=== PATIENT | female | born 2000 | race Caucasian/White ===

== ENCOUNTER → 2019-01-10 12:05 | Outpatient (CLI) | payer OTHER, SELFPAY ==
[2019-01-10 13:27] LABS: Hematocrit 41.5 % (37-47); Hemoglobin 13.9 g/dL (12.0-15.0); Mean Corp Hgb Conc 33.5 g/dL (32-36); Mean Corpuscular Volume 86.6 fL (81-99); Mean Platelet Vol. 11.1 fl (6.2-12.0); Platelet Count 230 K/mm3 (150-450); RBC Distribution Width SD 37.8 fl (35.1-43.9); Red Blood Count 4.79 M/mm3 (4.2-5.4); White Blood Count 8.4 K/mm3 (4.4-11.0)
[2019-01-10 13:49] LABS: Fibrinogen 333 mg/dl (203-444); International Normalized Ratio 1.1; Partial Thromboplast Time 28.1 Seconds (24.1-36.2); Prothrombin Time (Protime)PT. 13.8 SECONDS (11.7-14.9)
[2019-01-10 14:00] LABS: Hemoglobin A1c 5.1 % (4.2-6.3)
[2019-01-10 14:02] LABS: Vitamin D,25 Hydroxy 15.9 ng/mL (29.95-100.01)
[2019-01-10 14:03] LABS: ALB/GLOB Ratio 1.1 RATIO (0.9-2.4); AST(SGOT) 30 U/L (15-37); Alanine Aminotransfer ALT/SGPT 62 U/L (13-56); Alkaline Phosphatase 66 U/L (45-117); Anion Gap 7 (5-15); BUN 15 mg/dL (7-18); BUN/Creat Ratio 15.1 RATIO (10-20); Chloride 108 mmol/L (98-107); Cholesterol 117 mg/dL (200); Creatinine, Serum 0.99 mg/dL (0.55-1.02); EST Glomerular Filtration Rate 76 mL/min (>60); Est Glom Filt Rate - Afr Amer 92 mL/min (>60); Ferritin 71 ng/mL (8-252); Globulin 3.5 g/dL (2.2-4.2); Glucose 86 mg/dL (74-106); High Density Lipoprotein 40 mg/dL; Potassium 3.7 mmol/L (3.5-5.1); Protein, Total 7.5 g/dL (6.4-8.2); Sodium Level 142 mmol/L (136-145); T4 Free Direct 1.14 ng/dL (0.76-1.46); Thyroid Stim Hormone (TSH) 2.39 uIU/mL (0.358-3.74); Triglycerides 84 mg/dL; Very Low Density Lipoprotein 17 mg/dL (5-40)
[2019-01-15 16:07] LABS: Factor VIII Activity 135 % (56-140); von Willebrand Factor Activity 86 % (50-200)
[2019-01-17 12:30] LABS: VWD Studies Interp Report Note (.); von Willebrand Factor (vWF) Ag 109 % (50-200)
== END ==
PROVIDERS: Family Provider Pediatrics; PCP Pediatrics
DX: Z00.01 Encounter for general adult medical examination with abnormal findings (principal); N92.1 Excessive and frequent menstruation with irregular cycle; E66.3 Overweight
CPT/HCPCS: 36415; 80053; 80061; 82306; 82728; 83036; 84439; 84443; 85027; 85240; 85245; 85246; 85384; 85610; 85730

== ENCOUNTER 2019-07-07 03:34 | Emergency (ER) | payer OTHER, SELFPAY ==
[2019-07-07 03:35] VITALS: BP 155/100; PULSE 98; RESP 16; TEMP 37.2; O2SAT 100; BMI 49.5
--- NOTE | 2019-07-07 03:38 | EKG12_ITS ---
Test Reason : DYSRHYTHMIA Blood Pressure : / mmHG Vent. Rate : 082 BPM Atrial Rate : 082 BPM P-R Int : 144 ms QRS Dur : 076 ms QT Int : 350 ms P-R-T Axes : 012 055 016 degrees QTc Int : 408 ms Sinus rhythm with marked sinus arrhythmia Otherwise normal ECG Confirmed by JULY YOUNG, OSMAN ([id number]), advertising editor HIWOT ERWIN ([id number]) on 07/09/2019 10:10:53 AM Referred By: MR Confirmed By:OSMAN MCDOWELL MD
--- NOTE | 2019-07-07 03:53 | ED.VIS.GEN ---
History of Present Illness Chief Complaint: Chest Other Narrative: Patient presenting secondary to chest pain palpitations and startling awake. Patient states that over the course of about the last 3 days anytime she feels as if she is relaxing or falling asleep she is startling awake and having palpitations shortness of breath and chest pain. Patient denies that this is associated with any sort of persistent chest pain. She denies any recent infectious signs or symptoms such as runny nose postnasal drip sore throat cough nausea vomiting diarrhea or fevers. She is never had any prior similar episodes in the past. She denies any recent neck injuries. She is not on any sort of medications or any sedating medicines or any alcohol. She denies any visual changes numbness weakness or speech difficulty. She denies any difficulty with swallowing. Review of systems otherwise negative. Past Medical History - Allergies and Home Meds Allergies/Adverse Reactions: Allergies amoxicillin Allergy (Verified 07/07/19 03:41) Unknown Penicillins Allergy (Verified 07/07/19 03:41) Unknown Primary Care Physician: Lj Finch MD [Primary Care Provider] - Past Medical History: None Surgical History: adenoidectomy, tonsillectomy Smoking Status: Never smoker Review of Systems All systems negative except as indicated General: Denies: Chills, Fever, Sweats Eyes: Denies: Visual changes - bilaterally, Diplopia ENT: Denies: Rhinorrhea, Sore throat Cardiovascular: Reports: Chest pain, Palpitations Respiratory: Reports: Dyspnea Gastrointestinal: Denies: Abdominal pain, Nausea, Vomiting, Diarrhea, Melena, Hematochezia Genitourinary: Denies: Dysuria, Hematuria, Frequency Musculoskeletal: Denies: Back pain, Extremity Pain Skin: Denies: Rash, Wounds Neurological: Denies: Headache, Weakness, Numbness Physical Exam Vital Signs/Narrative: Vital Signs Temp Pulse Resp BP Pulse Ox 07/07/19 03:35 98.9 F 98 16 155/100 H 100 Inital Vital Signs reviewed: Yes General: Well nourished, Well developed, Obese Head: Normocephalic, Atraumatic Eyes: Perrl, EOMI ENT: Moist mucous membranes, No rhinorrhea, - - Oropharynx is clear. Patient seems to have evidence of reemergence of her tonsils. No evidence of asymmetry or posterior fullness. Neck: Supple, Nontender Cardiovascular: Regular rate, Regular rhythm, No murmurs Respiratory: No distress, CTA bilaterally, Chest nontender Abdomen: Soft, Nontender, Nondistended, Normal bowel sounds Back: Nontender, Normal Inspection Extremities: Nontender, No edema Skin: Normal color, No rash Neurological: Alert, Oriented x3, Cranial nerves II-XII grossly intact, Normal Strength, Normal Sensation Psychological: Normal affect, Normal Mood Diagnostic/Tx/Re-eval - EKG Initial EKG Interpretation: - - Sinus arrhythmia with a sinus rhythm of [address] segments normal T waves normal NC and QTc intervals no evidence of WPW or Brugada morphology. - Medical Decision Making Patient presented with shortness of breath upon waking. A PA and lateral soft tissue neck x-ray was obtained by my personal review as well as radiology shows no evidence of posterior fullness epiglottitis or acute process. EKG was found to be within normal limits. Patient symptomatology and her body habitus would seem consistent with the possibility of her having sleep apnea. Patient will be given referral to pulmonology as well as ear nose and throat. She was recommended to sleep in a semiupright position to help alleviate this. All questions were answered and the patient was discharged. ED Disposition - Plan for ED Patient: Disposition: Home or Assisted Living Diagnosis: Sleep apnea syndrome Instructions: SLEEP APNEA, Obstructive (Adult) Referrals: Maicol Melton DO [STAFF PHYSICIAN] - 1-2 Weeks Juventino Olivares MD [STAFF PHYSICIAN] - 1-2 Weeks
--- NOTE | 2019-07-07 04:15 | RAD_ITS ---
HISTORY: PT FEELS SOMETHING IN THROAT WHILE SWALLOWING, SOB COMPARISON: None TECHNIQUE: AP and lateral soft tissue neck radiographs Number of images including paperwork: 2 FINDINGS: EPIGLOTTIS AND ARYEPIGLOTTIC FOLDS: Unremarkable. AIRWAY: Unremarkable. PREVERTEBRAL SOFT TISSUES: No significant prevertebral soft tissue thickening. No distinct foreign body. BONES: No acute skeletal abnormality. RAD/Neck for Soft Tissue IMPRESSION: No acute findings. at 0437 Reported and signed by: Darya Cantu MD Electronically Signed: Darya Cantu MD at 4:37 EST Tel , Service support ,
[2019-07-07 05:40] VITALS: BP 139/67; PULSE 89; RESP 17; O2SAT 96
== END 2019-07-07 05:41 | disposition home or self-care (01) ==
PROVIDERS: Emergency Provider Emergency Medicine; PCP Pediatrics
DX: G47.30 Sleep apnea, unspecified (principal); E66.9 Obesity, unspecified; Z88.0 Allergy status to penicillin
CPT/HCPCS: 70360; 93005; 99282

== ENCOUNTER → 2019-08-07 09:36 | Outpatient (CLI) | payer OTHER, SELFPAY ==
[2019-08-07 12:42] LABS: Vitamin B12 1005 pg/mL (211-911); Vitamin D,25 Hydroxy 11.9 ng/mL
[2019-08-07 12:50] LABS: ALB/GLOB Ratio 1.1 RATIO (0.9-2.4); AST(SGOT) 40 U/L (15-37); Alanine Aminotransfer ALT/SGPT 89 U/L (13-56); Albumin, Serum 3.8 g/dL (3.2-5.0); Alkaline Phosphatase 76 U/L (45-117); Anion Gap 6 (5-15); BUN 9 mg/dL (7-18); BUN/Creat Ratio 10.7 RATIO (10-20); Calcium,Total 9.1 mg/dL (8.5-10.1); Chloride 104 mmol/L (98-107); Creatinine, Serum 0.84 mg/dL (0.55-1.02); EST Glomerular Filtration Rate 91 mL/min (>60); Est Glom Filt Rate - Afr Amer 110 mL/min (>60); Globulin 3.5 g/dL (2.2-4.2); Glucose 88 mg/dL (74-106); Potassium 3.8 mmol/L (3.5-5.1); Protein, Total 7.3 g/dL (6.4-8.2); Sodium Level 137 mmol/L (136-145); Thyroid Stim Hormone (TSH) 1.86 uIU/mL (0.358-3.74)
== END ==
PROVIDERS: PCP Family Medicine; Referring Provider Family Medicine; Visit Provider Family Medicine
DX: R42 Dizziness and giddiness (principal); E55.9 Vitamin D deficiency, unspecified
CPT/HCPCS: 36415; 80053; 82306; 82607; 84443

== ENCOUNTER → 2019-10-12 09:32 | Outpatient (CLI) | payer OTHER, SELFPAY ==
[2019-10-13 12:48] LABS: H. Pylori Antibody (IgG) 0.27 (0.00-0.79)
== END ==
PROVIDERS: PCP Family Medicine; Referring Provider Family Medicine; Visit Provider Family Medicine
DX: R10.9 Unspecified abdominal pain (principal)
CPT/HCPCS: 36415; 86677

== ENCOUNTER → 2019-11-02 10:26 | Outpatient (CLI) | payer OTHER, SELFPAY ==
[2019-10-18 14:39] VITALS: BMI 47.4
[2019-10-24 10:00] VITALS: BMI 47.4
--- NOTE | 2019-11-02 10:29 | US_ITS ---
STUDY: ABDOMINAL ULTRASOUND REASON FOR EXAM: Female, 18 years old. LUQ PAIN TECHNIQUE: Transabdominal ultrasound was performed with real-time and static harding scale imaging. TECHNICAL QUALITY: Limited. Examination limited due to a combination of factors including obesity and bowel gas. COMPARISON: None. FINDINGS: Liver: The liver measures 16.6 cm. There is increased echogenicity consistent with fatty infiltration. The bile ducts are within normal limits. There is hepatic color flow. The direction of portal flow is hepatopetal. There is no demonstrated mass lesion. Portal vein measurement: Gallbladder: Normal distended gallbladder. The gallbladder wall measures 2 mm. There is a negative sonographic Catalan''s sign. There is no pericholecystic fluid. There are no gallstones. Common Bile Duct (C.B.D.): The common bile duct measures 2 mm. Pancreas: Normal size of the head, body and tail of the pancreas. There is increased echogenicity of the pancreas. There is no demonstrated pancreatic mass or cyst. Spleen: Normal size of the spleen. The spleen measures 12.8 cm. Right Kidney: Normal size of the right kidney. The right kidney measures 10.3 x 4.8 x 4.5 cm. Normal renal cortex. The right cortex measures 1.9 cm. There is no demonstrated renal mass or cyst. There is no right hydronephrosis. Left Kidney: Normal size of the left kidney. The left kidney measures 10.1 x 5.8 x 5.0 cm. Normal renal cortex. The left cortex measures 1.8 cm. There is no demonstrated renal mass or cyst. There is no left hydronephrosis. Aorta: Tapers normally I.V.C.: The IVC is patent. There is no ascites. US/Abdomen Complete IMPRESSION: Diffuse fatty administration of the liver, no discrete lesion Sonographically normal gallbladder Nonspecific echogenic pancreas Electronically Signed: Farhat Ballard MD at 11:47 EDT , Service support ,
== END ==
PROVIDERS: PCP Family Medicine; Referring Provider Family Medicine; Visit Provider Family Medicine
DX: R10.9 Unspecified abdominal pain (principal)
CPT/HCPCS: 76700

== ENCOUNTER → 2019-11-19 14:36 | Outpatient (CLI) | payer OTHER, SELFPAY ==
[2019-10-24 10:00] VITALS: BMI 47.4
--- NOTE | 2019-11-19 14:38 | CT_ITS ---
STUDY: CT ABDOMEN AND PELVIS WITH CONTRAST REASON FOR EXAM: Female, 18 years old. ABD PAIN- LUQ X 2 MON, NO PREV SURG RADIATION DOSAGE (If Supplied By Facility): CTDIvol = ( 15.24 ) mGy, DLP = ( 1206.61 ) mGycm TECHNIQUE: Transaxial images were obtained from the dome of the diaphragm to the symphysis pubis with oral contrast. IV 100mL Isovue-300 was administered. Sagittal and coronal images were reconstructed. Individualized dose optimization techniques were used for this CT. COMPARISON: None. FINDINGS: The visualized lung bases are unremarkable. The visualized portions of the heart are within normal limits. There is decreased attenuation of the liver consistent with steatosis. Normal gallbladder and extrahepatic biliary system. Normal spleen. Normal pancreas. Normal bilateral adrenal glands. Normal right kidney. Normal left kidney. Normal visualized stomach. Normal small intestine. Normal colon. The appendix is visualized and appears normal. Appendix best seen on coronal recon image 72 Normal abdominal aorta. Normal inferior vena cava. Normal retroperitoneum. Normal urinary bladder. Normal-appearing uterus. No suspicious cystic mass or free fluid, there is a likely physiologic 2 cm right ovarian cyst noted. Normal abdominal wall. Normal osseous structures. CT/Abdomen/Pelvis WITH Contrast IMPRESSION: Diffuse fatty infiltration of the liver, no discrete lesion No free intraperitoneal fluid, air, or suspicious adenopathy No suspicious cystic mass or free fluid in the pelvis Likely physiologic 2 cm right ovarian cyst Electronically Signed: Farhat Ballard MD at 16:41 EDT , Service support ,
== END ==
PROVIDERS: PCP Family Medicine; Referring Provider Family Medicine; Visit Provider Family Medicine
DX: R10.9 Unspecified abdominal pain (principal)
CPT/HCPCS: 74177; Q9967

== ENCOUNTER → 2019-12-28 08:41 | Outpatient (CLI) | payer OTHER, SELFPAY ==
[2019-10-24 10:00] VITALS: BMI 47.4
== END ==
PROVIDERS: PCP Family Medicine; Referring Provider Family Medicine; Visit Provider Family Medicine
DX: Z20.828 Contact with and (suspected) exposure to other viral communicable diseases (principal)
CPT/HCPCS: 87635; U0003

== ENCOUNTER → 2020-01-16 12:39 | Outpatient (CLI) | payer OTHER, SELFPAY ==
[2020-01-16 08:17] VITALS: BMI 47.4
[2020-01-18 09:53] LABS: HPV Reflexed? NOT INDICATED
== END ==
PROVIDERS: PCP Family Medicine; Referring Provider Obstetrics & Gynecology; Visit Provider Obstetrics & Gynecology
DX: Z12.4 Encounter for screening for malignant neoplasm of cervix (principal)
CPT/HCPCS: 88175; G0145

== ENCOUNTER 2020-02-04 18:57 | Outpatient (RCR) | payer OTHER, SELFPAY ==
[2020-01-16 08:17] VITALS: BMI 47.4
== END 2020-02-06 23:59 ==
LOC: EMPH 18:57
PROVIDERS: PCP Family Medicine; Visit Provider Family Medicine Geriatric Medicine
DX: Z11.59 Encounter for screening for other viral diseases (principal)
CPT/HCPCS: 87635; U0003

== ENCOUNTER → 2020-02-27 07:13 | Outpatient (CLI) | payer OTHER, SELFPAY ==
[2020-02-19 15:08] VITALS: BMI 47.5
--- NOTE | 2020-02-27 07:14 | MRI_ITS ---
STUDY: MRI LEFT KNEE REASON FOR EXAM: Female, 19 years old. Knee pain, knee injury TECHNIQUE: Standardized fat and water weighted pulse sequences were obtained in all 3 orthogonal planes. COMPARISON: X-ray 02/19/2020 FINDINGS: Normal medial meniscus. Normal hyaline cartilage of the medial femorotibial compartment. Normal medial femoral condyle and tibial plateau. Normal medial collateral ligamentous complex (MCL). Normal distal semimembranosus, gracilis and semitendinosus tendons. Normal lateral meniscus. Normal hyaline cartilage of the lateral femorotibial compartment. Normal lateral femoral condyle and tibial plateau. Normal proximal tibiofibular articulation. Normal lateral collateral (fibular) ligament. Normal popliteus tendon. Normal biceps femoris tendon. Normal anterior cruciate ligament (ACL). Normal posterior cruciate ligament (PCL). Shallow trochlear groove with lateral subluxation of patella and edema superolateral Hoffa''s fat pad consistent with patellofemoral maltracking. No evidence of recent patellar dislocation. Normal hyaline cartilage of the patellofemoral compartment. Normal medial and lateral patellar retinaculum. Normal quadriceps tendon. Normal patellar tendon. Normal Hoffa''s fat pad. There is a small volume joint effusion. The soft tissues are unremarkable. The otherwise visualized osseous structures are unremarkable. MRI/Lower Ext Joint Only (Routine) IMPRESSION: Patellofemoral maltracking with a small joint effusion. No MR evidence of recent patellar dislocation. Electronically Signed: Femi Arrington MD at 10:45 EDT Tel , Service support ,
== END ==
LOC: MRI 07:14
PROVIDERS: PCP Family Medicine; Referring Provider Orthopaedic Surgery; Visit Provider Orthopaedic Surgery
DX: S83.005A Unspecified dislocation of left patella, initial encounter (principal); M25.362 Other instability, left knee
CPT/HCPCS: 73721

== ENCOUNTER → 2020-03-27 08:04 | Outpatient (CLI) | payer OTHER, SELFPAY ==
[2020-01-16 08:17] VITALS: BMI 47.4
[2020-02-19 15:08] VITALS: BMI 47.5
--- NOTE | 2020-03-27 08:05 | US_ITS ---
STUDY: ULTRASOUND OF THE FEMALE PELVIS - COMPLETE REASON FOR EXAM: Female, 19 years old. Irregular menses LMP: 03/13/2020. TECHNIQUE: Transabdominal and Transvaginal TECHNICAL QUALITY: Adequate. COMPARISON: None. FINDINGS: The uterus is anteverted and is tilted to the right side of the pelvis. The uterus measures 8 cm x 4.7 cm x 4 cm. There is a Nabothian cyst of the cervix. The endometrium measures 10 mm in thickness, and is hyperechoic. There is no demonstrated endometrial mass. There is no demonstrated myometrial mass. I.U.D. - The patient does not have an I.U.D. The right ovary is visualized. The right ovary measures 2.2 cm x 1.8 cm x 1.4 cm. There is no right ovarian cyst or ovarian mass. There is no visualized right adnexal mass or complex lesion. There is normal arterial and normal venous vascularity. The left ovary is visualized. The left ovary measures 3.3 cm x 1.4 cm x 2.2 cm. There is no left ovarian cyst or ovarian mass. There is no visualized left adnexal mass or complex lesion. There is normal arterial and normal venous vascularity. There is no fluid in the cul-de-sac. The pre void volume of the bladder was 61.5 ml. Polycystic ovary disease: No. US/Pelvic (Non ) IMPRESSION: Normal female pelvis. Electronically Signed: Bello Schneider, at 9:06 EST , Service support ,
--- NOTE | 2020-03-27 08:29 | US_ITS ---
STUDY: ULTRASOUND OF THE FEMALE PELVIS - COMPLETE REASON FOR EXAM: Female, 19 years old. Irregular menses LMP: 03/13/2020. TECHNIQUE: Transabdominal and Transvaginal TECHNICAL QUALITY: Adequate. COMPARISON: None. FINDINGS: The uterus is anteverted and is tilted to the right side of the pelvis. The uterus measures 8 cm x 4.7 cm x 4 cm. There is a Nabothian cyst of the cervix. The endometrium measures 10 mm in thickness, and is hyperechoic. There is no demonstrated endometrial mass. There is no demonstrated myometrial mass. I.U.D. - The patient does not have an I.U.D. The right ovary is visualized. The right ovary measures 2.2 cm x 1.8 cm x 1.4 cm. There is no right ovarian cyst or ovarian mass. There is no visualized right adnexal mass or complex lesion. There is normal arterial and normal venous vascularity. The left ovary is visualized. The left ovary measures 3.3 cm x 1.4 cm x 2.2 cm. There is no left ovarian cyst or ovarian mass. There is no visualized left adnexal mass or complex lesion. There is normal arterial and normal venous vascularity. There is no fluid in the cul-de-sac. The pre void volume of the bladder was 61.5 ml. Polycystic ovary disease: No. US/Transvaginal Non- IMPRESSION: Normal female pelvis. Electronically Signed: Bello Schneider, at 9:06 EST , Service support ,
== END ==
PROVIDERS: PCP Family Medicine; Referring Provider Obstetrics & Gynecology; Visit Provider Obstetrics & Gynecology
DX: N92.6 Irregular menstruation, unspecified (principal)
CPT/HCPCS: 76830; 76856

== ENCOUNTER 2020-04-28 09:00 | Outpatient (RCR) | payer OTHER, SELFPAY ==
--- NOTE | 2020-03-05 11:53 | HP.PTEVAL ---
Patient's Visit Information MARISA FRIEDMAN is a 19 year old F referred to Physical Therapy by Dr. Dorota Butler DO with a diagnosis of Left Patellar Subluxation. Date of Evaluation: 03/05/20 Physical Therapist: Elissa Burden DPT - Visit Plan Frequency: 3x /Week Duration: 4 Weeks Plan: Lateral Patella Subluxation- focus on gentle ROM and strengthening- modalities PRN. HEP Given IE: quad set with towel roll, heel slides supine, bolster extension in sitting. - Subjective Patient reports that stepping off of her porch and her left knee cap dislocated 2 weeks ago. The knee cap was dislocated and she had to put it back in. [facility] the [facility] day and they did x-rays which were negative then sent to ortho. Saw Dr. Butler- she did and MRI which showed that the muscle that keeps the knee cap is weak and she has a shallow groove. Discussing surgery but she would rather not. She feels the knee cap slips most of the time even when she is walking. No pain in the knee at this time just pressure. Sleep: disturbed hard to roll back and forth. Pressure is under the cap and on the lateral side of the knee cap. Wears the brace all the time except for at night. Worst: 5/10 Agg: bending Describes the pain as dull and achy. Radiates to the toes- describes it as cramping but it doesnt actually cramp. Does have N/T in the toes which is new- all of them. Best: 0/10 Eases: keeping it at a certain angle. 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 PMHx/Meds: none since she saw MD- in chart. - Objective Posture: FH, RS- can correct but does not maintain. Gait: antalgic- decreased stance on the left LE with poor heel/toe pattern due to decreased ROM and she is hesitant to weightbear for long periods of time on the left. HR/TR: able. SLS: 3 sec then LOB- increased guarding and is hesitant. Palpation: tender along lateral joint line and into the lateral thight. Sensation:WNL. ROM: 40-70 degrees with pain and reports pressure at end ranges- 15-85 with gentle stretching with pain and pressure at end range. Strength: Ankle: 5/5, Hamstrin+/5 with pain, Quad set: visible but diminished. Hip: SLR: moderate lag, extn/abd: 4+/5, IR/ER: not tested due to knee pain. Edema: none noted - Goals Goal 1:: Patient will be I with HEP and progression Goal Time Frame: 4-6 Weeks Goal 2:: Patient will ambulate >300 feet with a normalized gait pattern Goal Time Frame: 4-6 Weeks Goal 3:: Patient will asc/desc 8 stairs recip with 1 HR Goal Time Frame: 4-6 Weeks Goal 4:: Patient will demo 0-125 degrees of the left knee Goal Time Frame: 4-6 Weeks - Rehabilitation Potential Physical Therapy Diagnosis: Patient presents with hypomobility- she has decreased ROM,strength, flex and muscular endurance leading to abnormal gait and decreased ability to perform ADL's. Rehabilitation Potential: Fair - Anticipated Interventions Patient/Client Instruction: Educate patient on: Benefits of Fitness Program Therapeutic Exercise to Include: Strength training, Endurance training, Balance training, Coordination, Agility training, Body mechanics, Postural training, Flexibilty training, Neuromotor development, Passive ROM, Active ROM, Dynamic Lumbar Stabilization For the Purpose of:: To improve muscle performance and motor function TENS: Yes Cryotherapy (ice pack, ice massage): Yes Thermo therapy (hot pack): Yes Ultrasound (thermal/non thermal): Yes For the Purpose of:: To increase ROM Thank you for the opportunity to evaluate your patient. For Medicare and Medicare HMO plans, please review the plan of care and approve it. It will need to be FAXED BACK to us at [phone] for Medicare purposes. For Medicare only, by signing this I certify the plan of care. Please let me know if there are questions or concerns regarding this plan of care. Physician Signature: Date:
--- NOTE | 2020-03-31 10:29 | HP.PTREVAL ---
Dr. Dorota Butler, DO, It has been my pleasure to treat MARISA FRIEDMAN over the last 12 visits for Left Patellar Subluxation. Please see the progress note below for an update on the physical therapy plan of care! Subjective: Patient reports that her knee has no pain and the pressure is improving. She can bend it now better with some pressure. Wears the knee brace all the time unless she is at home. Saw Alireza a few weeks ago and he was happy with progress and does not feel that she is needing surgery. She has not had any instability but it does pop. Feels that the knee is 70% better- she feels that she wants to continue therapy to build more muscular strength. Objective/Function: Posture: FH, RS- can correct but does not maintain. Gait: slightly antalgic- decreased stance on the left LE with poor heel/toe pattern HR/TR: able. SLS: 8 sec then LOB- increased guarding and is hesitant. Palpation:not tender to touch. Sensation:WNL. ROM: 5-110 degrees with pain and reports pressure at end ranges- Strength: Ankle: 5/5, Hamstrin+/5 with pain, Quad set: 4/5. Hip: SLR: mild lag, extn/abd: 4+/5, IR/ER: 4/5 Edema: none noted Plan Plan: Continue with POC- PT without brace unless squatting-work to progress towards confident mobility without brace. Goals Goal 1:: Patient will be I with HEP and progression Goal Time Frame: 4-6 Weeks Goal Progress: Progressing Goal 2:: Patient will ambulate >300 feet with a normalized gait pattern Goal Time Frame: 4-6 Weeks Goal Progress: Progressing Goal 3:: Patient will asc/desc 8 stairs recip with 1 HR Goal Time Frame: 4-6 Weeks Goal Progress: Progressing Goal 4:: Patient will demo 0-125 degrees of the left knee Goal Time Frame: 4-6 Weeks Goal Progress: Progressing Anticipated Interventions Patient/Client Instruction: Educate patient on: Benefits of Fitness Program Therapeutic Exercise to Include: Strength training, Endurance training, Balance training, Coordination, Agility training, Body mechanics, Postural training, Flexibilty training, Neuromotor development, Passive ROM, Active ROM, Dynamic Lumbar Stabilization For the Purpose of:: To improve muscle performance and motor function TENS: Yes Cryotherapy (ice pack, ice massage): Yes Thermo therapy (hot pack): Yes Ultrasound (thermal/non thermal): Yes For the Purpose of:: To increase ROM Please do not hesitate to contact me at [phone] by phone or if you have questions or concerns regarding this new plan of care! Sincerely, WALDO TerrellT
--- NOTE | 2020-04-28 09:26 | HP.PTDCSUM ---
It has been my pleasure to treat MARISA FRIEDMAN referred by Dr. Dorota Butler DO, with the diagnosis of Left Patellar Subluxation for a total of 21 visit(s). Discharge Date: Please see the following information for a summary of their discharge status. Subjective: The pain is better but now its getting stuck. After driving she has to extend it slowly or if she is extended she has not move it slowly. Started a new job last night so she will be the same but the patients will be less. Does feel like its getting better. left knee Pain Intensity (Out of 10): 2 % Improvement: 75 Objective/Function: Posture: FH, RS- can correct but does not maintain. Gait: no deviation noted HR/TR: able. SLS: 15 sec then LOB. Palpation:not tender to touch. Sensation:WNL. ROM: 0-120 degrees with pain and reports pressure at end ranges- Strength: Ankle: 5/5, Hamstrin+/5, Quad set: 4/5. Hip: SLR: no lag, extn/abd: 5/5, IR/ER: 4+/5 Edema: none noted. Stais: asc/desc 8 recip with no HR fair control Goal 1:: Patient will be I with HEP and progression Goal Progress: Goal Met Goal 2:: Patient will ambulate >300 feet with a normalized gait pattern Goal Progress: Goal Met Goal 3:: Patient will asc/desc 8 stairs recip with 1 HR Goal Progress: Goal Met Goal 4:: Patient will demo 0-125 degrees of the left knee Goal Progress: Progressing Plan: Discharge to HEP If there are questions or concerns regarding this patient's physical therapy, please feel free to call me at [phone]. Thank you for the referral of this patient. Sincerely, Elissa Burden DPT
== END 2020-04-28 10:12 | disposition home or self-care (01) ==
LOC: PT 09:00
PROVIDERS: PCP Family Medicine; Referring Provider Orthopaedic Surgery; Visit Provider Orthopaedic Surgery
DX: M22.02 Recurrent dislocation of patella, left knee (principal)
CPT/HCPCS: 97014; 97110; 97161; 97164; G0283

== ENCOUNTER → 2020-09-11 15:42 | Outpatient (CLI) | payer SELFPAY ==
[2020-08-28 11:25] VITALS: BMI 49.0
--- NOTE | 2020-09-11 16:07 | MRI_ITS ---
STUDY: MRI BRAIN WITH AND WITHOUT CONTRAST REASON FOR EXAM: Female, 19 years old. DIZZINESS TECHNIQUE: Standardized multiplanar fat and water weighted pulse sequences were obtained. 25ML IV DOTAREM was administered for the contrast portion of the examination. COMPARISON: None. FINDINGS: No intracranial mass, mass effect, or midline shift. No enhancing lesion. No hemorrhage, territorial infarct or acute ischemia. Normal size of the ventricles and extra-axial spaces for the patient''s age. Normal white matter tracts of the supratentorial brain. Normal bilateral basal ganglia. Normal thalami. There is no extra-axial fluid accumulation. Normal flow voids within the major intracranial circulation suggesting patency by spin echo criteria. There is no enhancing intra-axial or extra-axial abnormality. Normal sella turcica, pituitary gland, infundibular stalk, optic chiasm and hypothalamus. Normal midbrain, ruel and medulla. Normal cerebellum. Normal basal cisterns. Normal bilateral temporal bones. Normal visualized paranasal sinuses. Normal calvarium and skull base. Normal visualized soft tissue structures. MRI/Brain W/WO Contrast IMPRESSION: Normal unenhanced and enhanced MRI of the brain. Electronically Signed: Suzie Ray MD at 22:17 EDT Tel , Service support ,
== END ==
LOC: MRI 15:47
PROVIDERS: PCP Family Medicine; Referring Provider Family Medicine; Visit Provider Family Medicine
DX: R42 Dizziness and giddiness (principal)
CPT/HCPCS: 70553; A9575

== ENCOUNTER → 2020-11-24 08:37 | Outpatient (CLI) | payer BC, SELFPAY ==
[2020-08-28 11:25] VITALS: BMI 49.0
[2020-11-24 09:53] LABS: NATERA MAILED SPECIMEN
[2020-11-24 10:41] LABS: Absolute Lymphocyte Count 1.69 X10^3/uL (0.83-4.51); Absolute Neutrophil Count 4.7 X10^3/uL (2.0-7.7); Basophil# 0.05 X10^3/uL; Basophil% 0.7 % (0-1); Eosinophil# 0.16 X10^3/uL; Eosinophils% 2.2 % (0-5); Hematocrit 40.1 % (37-47); Hemoglobin 13.4 g/dL (12.0-15.0); Lymphocyte # 1.69 X10^3/ul (0.83-4.51); Lymphocyte % 23.2 % (19-41); Mean Corp Hgb Conc 33.4 g/dL (32-36); Mean Corpuscular Volume 86.8 fL (81-99); Mean Platelet Vol. 11.6 fl (6.2-12.0); Monocyte# 0.67 X10^3/uL; Monocyte% 9.2 % (0-10); NRBC Flagged by Analyzer 0 % (0-5); Neutrophil # 4.69 X10^3/uL (2.7-7.7); Neutrophil % 64.2 % (47-70); Platelet Count 194 K/mm3 (150-450); RBC Distribution Width CV 11.9 % (11.6-14.6); RBC Distribution Width SD 37.7 fl (35.1-43.9); Red Blood Count 4.62 M/mm3 (4.2-5.4); White Blood Count 7.3 K/mm3 (4.4-11.0)
[2020-11-24 11:02] LABS: Hemoglobin A1c 5.3 % (3.8-5.6)
[2020-11-24 11:20] LABS: ALB/GLOB Ratio 1.1 RATIO (0.9-2.4); AST(SGOT) 45 U/L (15-37); Alanine Aminotransfer ALT/SGPT 83 U/L (13-56); Albumin, Serum 3.6 g/dL (3.2-5.0); Alkaline Phosphatase 78 U/L (45-117); Anion Gap 7 (5-15); BUN 15 mg/dL (7-18); BUN/Creat Ratio 14.9 RATIO (10-20); Calcium,Total 8.4 mg/dL (8.5-10.1); Chloride 109 mmol/L (98-107); Creatinine, Serum 1.01 mg/dL (0.55-1.02); EST Glomerular Filtration Rate 73 mL/min (>60); Est Glom Filt Rate - Afr Amer 88 mL/min (>60); Globulin 3.4 g/dL (2.2-4.2); Glucose 116 mg/dL (74-106); Magnesium 2.1 mg/dL (1.6-2.6); Potassium 3.5 mmol/L (3.5-5.1); Sodium Level 140 mmol/L (136-145)
[2020-11-24 11:23] LABS: Vitamin B12 525 pg/mL (211-911)
[2020-11-24 11:33] LABS: Cholesterol 119 mg/dL (200); High Density Lipoprotein 33 mg/dL; Prolactin 9.3 ng/mL; Thyroid Stim Hormone (TSH) 2.45 uIU/mL (0.358-3.74); Triglycerides 179 mg/dL; Very Low Density Lipoprotein 36 mg/dL (5-40)
[2020-12-01 09:36] LABS: Testosterone, % Free 3.06 % (0.50-2.80); Testosterone, Free 0.55 ng/dL (0.10-0.85); Testosterone, Total 18 ng/dL (13-71)
== END ==
LOC: LAB 08:40
PROVIDERS: PCP Family Medicine; Referring Provider Obstetrics & Gynecology; Visit Provider Obstetrics & Gynecology
DX: R42 Dizziness and giddiness (principal); R20.0 Anesthesia of skin; G43.909 Migraine, unspecified, not intractable, without status migrainosus; E28.2 Polycystic ovarian syndrome
CPT/HCPCS: 36415; 80053; 80061; 82607; 82627; 83036; 83735; 84146; 84402; 84403; 84443; 85025; 82626

== ENCOUNTER → 2021-01-21 13:04 | Outpatient (CLI) | payer BC, OTHER, SELFPAY ==
--- NOTE | 2021-01-21 13:08 | US_ITS ---
History: pelvic pain Pelvic Ultrasound: Findings: Endovaginal ultrasound imaging of the pelvis performed. Uterus is normal size with endometrial thickness of 11 mm. Small nabothian cysts are present. The ovaries are normal in size, echogenicity and perfusion. Right ovary measures 2.8 x 1.9 x 1.4 cm. Left ovary measures 3.6 x 1.9 x 2.4 cm. No adnexal mass. No fluid in the cul-de-sac. IMPRESSION: No pelvic abnormality. at 1701 Reported and signed by: Itz Steinberg MD Electronically Signed: Itz Steinberg MD at 17:00 EDT Tel , Service support , US/Transvaginal Non-
--- NOTE | 2021-01-21 13:08 | US_ITS ---
STUDY: ULTRASOUND OF THE FEMALE PELVIS - COMPLETE REASON FOR EXAM: Female, 20 years old. PELVIC pain TECHNIQUE: Endovaginal. Transvaginal US was obtained to better visualized the ovaries. COMPARISON: 03.27.20 FINDINGS: The uterus is anteverted and is tilted to the left side of the pelvis. The uterus measures 6.5 x 4.2 x 3.9 cm. Normal uterine cervix. The endometrium measures 10.7 mm in thickness, and is hyperechoic. There is no demonstrated endometrial mass. There is no demonstrated myometrial mass. I.U.D. - The patient does not have an I.U.D. The right ovary is visualized. The right ovary measures 2.8 x 1.9 x 1.4 cm. There is no right ovarian cyst or ovarian mass. There is no visualized right adnexal mass or complex lesion. There is normal arterial and normal venous vascularity. The left ovary is visualized. The left ovary measures 3.6 x 1.9 x 2.4 cm. There is no left ovarian cyst or ovarian mass. There is no visualized left adnexal mass or complex lesion. There is normal arterial and normal venous vascularity. There is no fluid in the cul-de-sac. Urinary bladder volume is 258 cc. US/Pelvic (Non ) IMPRESSION: Normal female pelvis. Electronically Signed: Homer Fulton MD at 11:37 EDT , Service support ,
== END ==
LOC: US 13:07
PROVIDERS: PCP Family Medicine; Referring Provider Obstetrics & Gynecology; Visit Provider Obstetrics & Gynecology
DX: R10.2 Pelvic and perineal pain (principal)
CPT/HCPCS: 76830; 76856

== ENCOUNTER → 2021-02-11 15:44 | Outpatient (CLI) | payer BC, OTHER, SELFPAY ==
--- NOTE | 2021-02-11 | EMB_PTH ---
PATIENT: MARISA HOPPER LOC: [facility] U#:[id number] AGE/SX: 24/F ROOM: RE02/11/[address]: Dr. Xiomara Dumont MD : 2000 BED: DIS: SPEC #: [id number] RECD: 02/12/21 08:53 STATUS: XIOMARA KIRBY #: [id number] CORY: 02/11/21 00:[address]: Xiomara Dumont DEPT: SURGICAL PATHOLOGY RECD BY: Roldan Mccall ENTERED: 02/12/21 08:54 SP TYPE: ENDOM BX/C JUAREZ DR: Dr. Gregory Dumont MD Tissues: Endometrium, NOS Procedures: Surgery Specimen Level IV HEADER OPERATION: Endometrial biopsy PRE-OP DIAGNOSIS: Abnormal uterine bleeding TISSUE SUBMITTED: Endometrial lining MICROSCOPIC DIAGNOSIS Endometrial biopsy: Simple endometrial hyperplasia without atypia. SJ:sonny 02/13/2021 COMMENT Clinical correlation and appropriate follow up are necessary. Case has been reviewed in consultation with Dr. Espinosa who concurs with the above diagnosis. IDC:AM MICROSCOPIC DESCRIPTION Slides are reviewed. GROSS DESCRIPTION Received is one container labeled with the patient's name and not further designated. The specimen consists of multiple irregular fragments of matthews soft tissue that in aggregate measure 2 x 2 x 0.2 cm. The specimen is totally submitted in one cassette. / SJ:sonny 02/12/21 TC:5 CPT: 76783
== END ==
PROVIDERS: PCP Family Medicine; Visit Provider Obstetrics & Gynecology
DX: N93.9 Abnormal uterine and vaginal bleeding, unspecified (principal)
CPT/HCPCS: 88305

== ENCOUNTER → 2022-04-21 | Outpatient (CLI) | payer OTHER, SELFPAY ==
--- NOTE | 2022-04-21 | EMB_PTH ---
PATIENT: MARISA HOPPER [facility] U#:[id number] AGE/SX: 21/F ROOM: RE04/21/[address]: Dr. Sheryl Bee DO : 2000 BED: DIS: 04/21/2022 SPEC #: [id number] RECD: 04/21/22 13:18 STATUS: XIOMARA REPaige #: [id number] CORY: 04/21/22 00:[address]: Sheryl Bee DEPT: SURGICAL PATHOLOGY RECD BY: Shruthi Busch ENTERED: 04/22/22 08:47 SP TYPE: ENDOM BX/C JUAREZ DR: Dr. Gregory Dumont MD Tissues: Endometrium, NOS Procedures: Surgery Specimen Level IV HEADER OPERATION: Endometrial biopsy PRE-OP DIAGNOSIS: Simple endometrial hyperplasia without atypia TISSUE SUBMITTED: Endometrial biopsy MICROSCOPIC DIAGNOSIS Endometrium, biopsy: Proliferative endometrium. Fragments of endocervix with squamous metaplasia, inflamed. AM:sonny 04/23/2022 MICROSCOPIC DESCRIPTION Slides are reviewed. GROSS DESCRIPTION Received is one container labeled with the patient's name and not further designated. The specimen consists of multiple irregular fragments of matthews-pink soft tissue mixed with mucoid tissue that in aggregate measure 1 x 1 x 0.1 cm. The specimen is totally submitted in one cassette. / SJ:sonny 04/22/2022 TC:3 CPT: 03315
== END | disposition home or self-care (01) ==
LOC: LABSPEC 13:25
PROVIDERS: PCP Family Medicine; Visit Provider Obstetrics & Gynecology
DX: N85.01 Benign endometrial hyperplasia (principal)
CPT/HCPCS: 88305

== ENCOUNTER → 2023-02-22 | Outpatient (CLI) | payer OTHER, SELFPAY ==
[2023-02-22 15:13] LABS: Absolute Lymphocyte Count 2.06 X10^3/uL (0.83-4.51); Absolute Neutrophil Count 4.9 X10^3/uL (2.0-7.7); Basophil# 0.06 X10^3/uL; Basophil% 0.8 % (0-1); Eosinophil# 0.16 X10^3/uL; Eosinophils% 2.1 % (0-5); Hematocrit 40.6 % (37-47); Hemoglobin 13.2 g/dL (12.0-15.0); Lymphocyte # 2.06 X10^3/ul (0.83-4.51); Mean Corp Hgb Conc 32.5 g/dL (32-36); Mean Corpuscular Hgb 28.7 pg (27.0-32.0); Mean Corpuscular Volume 88.3 fL (81-99); Monocyte# 0.49 X10^3/uL; Monocyte% 6.4 % (0-10); NRBC Flagged by Analyzer 0 % (0-5); Neutrophil # 4.85 X10^3/uL (2.7-7.7); Neutrophil % 63.4 % (47-70); Platelet Count 222 K/mm3 (150-450); RBC Distribution Width CV 11.9 % (11.6-14.6); RBC Distribution Width SD 38.1 fl (35.1-43.9); White Blood Count 7.6 K/mm3 (4.4-11.0)
[2023-02-22 15:47] LABS: ALB/GLOB Ratio 1.1 RATIO (0.9-2.4); AST(SGOT) 22 U/L (15-37); Alanine Aminotransfer ALT/SGPT 44 U/L (13-56); Albumin, Serum 3.7 g/dL (3.2-5.0); Alkaline Phosphatase 58 U/L (45-117); Anion Gap 5 (5-15); BUN 16 mg/dL (7-18); BUN/Creat Ratio 15.2 RATIO (10-20); Calcium,Total 9.5 mg/dL (8.5-10.1); Chloride 108 mmol/L (98-107); Creatinine, Serum 1.05 mg/dL (0.55-1.02); EST Glomerular Filtration Rate 68 mL/min (>60); Est Glom Filt Rate - Afr Amer 83 mL/min (>60); Globulin 3.3 g/dL (2.2-4.2); Glucose 108 mg/dL (74-106); Sodium Level 139 mmol/L (136-145); Thyroid Stim Hormone (TSH) 1.43 uIU/mL (0.358-3.74)
[2023-02-22 16:03] LABS: hCG Titer Quant., Serum < 1 mIU/mL (1-3)
[2023-02-22 19:32] LABS: Hemoglobin A1c 4.8 % (3.8-5.6)
== END | disposition home or self-care (01) ==
PROVIDERS: PCP Family Medicine; Referring Provider Family Medicine; Visit Provider Family Medicine
DX: R42 Dizziness and giddiness (principal); Z13.21 Encounter for screening for nutritional disorder; E28.2 Polycystic ovarian syndrome
CPT/HCPCS: 36415; 80053; 82306; 83036; 84443; 84702; 85025

== ENCOUNTER → 2023-12-15 | Outpatient (CLI) | payer OTHER, SELFPAY ==
[2023-12-20 11:59] LABS: Chlamydia By Nucleic Acid AMP Negative (Negative); Gonococcus By Nucleic Acid AMP Negative (Negative)
[2023-12-23 08:28] LABS: HPV Reflexed? NOT INDICATED
== END | disposition home or self-care (01) ==
PROVIDERS: PCP Family Medicine; Referring Provider Nurse Practitioner Women's Health; Visit Provider Nurse Practitioner Women's Health
DX: Z12.4 Encounter for screening for malignant neoplasm of cervix (principal); Z11.3 Encounter for screening for infections with a predominantly sexual mode of transmission
CPT/HCPCS: 87491; 87591; 88175; G0145

== ENCOUNTER → 2024-07-17 | Outpatient (CLI) | payer OTHER, SELFPAY ==
--- NOTE | 2024-07-17 15:14 | US_ITS ---
PROCEDURE: PELVIC W/ TRANSVAGINAL (USPELTVAG), 07/17/2024 REASON FOR EXAM: AMENORRHEA AND HX PCOS TECHNIQUE: Grayscale and color doppler transabdominal and transvaginal pelvic ultrasound was performed. COMPARISON: None FINDINGS: Uterus: 8.0 x 4.5 x 3.9 cm, Anteverted. Unremarkable echotexture. Endometrium: 13 mm, echogenic secretory appearance. Cervix: Nabothian cysts. Right ovary: 2.8 x 2.4 x 2.1 cm (estimated volume 4.6 mL), unremarkable. Left ovary: 4.8 x 4.9 x 3.1 cm (estimated volume 38.9 mL). Enlarged by a simple appearing unilocular cyst measures 4.1 x 3.0 x 3.9 cm. Free fluid: None visualized. Other: Estimated bladder volume on transabdominal imaging 184 mL. US/Pelvic w/ Transvaginal IMPRESSION: 1. No convincing evidence of polycystic ovarian syndrome. 2. Simple appearing unilocular 4.1 cm left ovarian likely functional cyst. 3. Additional description as above. Reading Location: [id number]
== END | disposition home or self-care (01) ==
PROVIDERS: PCP Family Medicine; Referring Provider Nurse Practitioner Family; Visit Provider Nurse Practitioner Family
DX: E28.2 Polycystic ovarian syndrome (principal)
CPT/HCPCS: 76830; 76856

== ENCOUNTER → 2025-04-01 | Outpatient (CLI) | payer OTHER, SELFPAY ==
[2025-04-01 15:08] LABS: Hematocrit 42.2 % (37-47); Hemoglobin 14.5 g/dL (12.0-15.0); Immature Granulocytes Count 0.030 X10^3/uL (0.0-0.0); Mean Corp Hgb Conc 34.4 g/dL (32-36); Mean Corpuscular Volume 85.1 fL (81-99); Mean Platelet Vol. 11.0 fl (6.2-12.0); NRBC Flagged by Analyzer 0 % (0-5); Platelet Count 213 K/mm3 (150-450); RBC Distribution Width CV 12.1 % (11.6-14.6); RBC Distribution Width SD 37.2 fl (35.1-43.9); Red Blood Count 4.96 M/mm3 (4.2-5.4); White Blood Count 7.9 K/mm3 (4.4-11.0)
[2025-04-01 16:04] LABS: AST(SGOT) 35 U/L (<=31); Alanine Aminotransfer ALT/SGPT 53 U/L (<=34); Albumin, Serum 4.3 g/dL (3.5-5.0); Alkaline Phosphatase 62 U/L (35-104); Anion Gap 10 (5-15); BUN 13 mg/dL (4-19); BUN/Creat Ratio 13.9 RATIO (10-20); Calcium,Total 9.8 mg/dL (7.6-11.0); Carbon Dioxide 26.0 mmol/L (21.0-32.0); Chloride 104 mmol/L (98-108); Cholesterol 146 mg/dL (<=200); Globulin 3.0 g/dL (2.2-4.2); Glucose 103 mg/dL (70-99); Low Density Lipoprotein Calc. 91 mg/dL; Potassium 4.6 mmol/L (3.3-5.1); Triglycerides 129 mg/dL; Very Low Density Lipoprotein 26 mg/dL (5-40); Vitamin D,25 Hydroxy 13.9 ng/mL (30-100); cholesterol:hdl ratio screen 4.56
== END | disposition home or self-care (01) ==
LOC: MFPLAB 12:16
PROVIDERS: PCP Family Medicine; Visit Provider Family Medicine
DX: Z13.220 Encounter for screening for lipoid disorders (principal); R53.83 Other fatigue; E55.9 Vitamin D deficiency, unspecified; R73.09 Other abnormal glucose
CPT/HCPCS: 36415; 80053; 80061; 82306; 83036; 84443; 85025